=== PATIENT | female | born 1995 | race Caucasian/White ===

== ENCOUNTER 2016-10-18 18:23 | Emergency (ER) | payer OTHER ==
[2016-10-18] MEDS ORDERED: SUBOXONE 8 MG-1 EAC1 (18:29)
== END 2016-10-18 19:06 | disposition home or self-care (01) ==
LOC: SED 18:23
DX: T50.905A Adverse effect of unspecified drugs, medicaments and biological substances, initial encounter (principal); Z88.8 Allergy status to other drugs, medicaments and biological substances; Z86.14 Personal history of Methicillin resistant Staphylococcus aureus infection
CPT/HCPCS: 99282